=== PATIENT | female | born 1965 ===

== ENCOUNTER → 2021-01-11 | Outpatient (CLI) | payer OTHER | LOC: MC.RAD 12:54 | DX: Z12.31 Encounter for screening mammogram for malignant neoplasm of breast (principal); N63.21 Unspecified lump in the left breast, upper outer quadrant; R92.1 Mammographic calcification found on diagnostic imaging of breast ==

== ENCOUNTER → 2021-01-18 | Outpatient (CLI) | payer OTHER | LOC: MC.RAD 07:00 | DX: N63.21 Unspecified lump in the left breast, upper outer quadrant (principal) ==